=== PATIENT | male | born 1965 | race Caucasian/White ===

== ENCOUNTER 2020-08-28 05:10 | Emergency (ER) | payer MEDICARE, OTHER ==
[~2020-08-28 05:10] MED LIST: BENTYL10 MG PO; CIPRO500 MG PO; COMPAZINE10 MG PO; DEXAMETHASONE4 MG PO; DICYCLOMINE HCL20 MG PO; FOLIC ACID1 MG PO; HYDROCODON-ACE1 EAC6 PO; IBUPROFEN800 MG PO; LEVAQUIN 500MG500 MG PO; LISINOPRIL40 MG PO; MAG-OXIDE 400M400 MG PO; METFORMIN HCL750 MG PO; NOVOFINE AUTOC1 EACH SC; PEPCID AC20 MG PO; PHENERGAN25 M1 PO; PRILOSEC20 MG PO; PRINIVIL20 MG PO; PROTONIX 40MG T40 MG PO; REMERON15 MG PO; SIMVASTATIN40 MG PO; TRESIBA FL100 UNIT/1 SC; VITAMIN D32000 UNIT PO; ZESTRIL5 MG PO; ZOCOR40 MG PO
[2020-08-28] MEDS ORDERED: NORCO 5-325 TA1 EACH PO (11:40)
== END 2020-08-28 12:00 | disposition home or self-care (01) ==
LOC: FER 05:10
DX: S82.141A Displaced bicondylar fracture of right tibia, initial encounter for closed fracture (principal); H54.8 Legal blindness, as defined in USA; W19.XXXA Unspecified fall, initial encounter; Y92.009 Unspecified place in unspecified non-institutional (private) residence as the place of occurrence of the external cause
CPT/HCPCS: 73564; 73700; 96372; J1170; J1885

== ENCOUNTER 2020-10-17 07:29 | Inpatient (IN) | payer MEDICARE, OTHER ==
[~2020-10-17] VITALS: Ht 167.6 cm; Wt 68.0 kg
[~2020-10-17 07:29] MED LIST changes: +NORCO 5-325 TA1 EACH PO
[2020-10-17 08:27] LABS: BASOPHIL 0.5 % (0-2); EOSINOPHIL 0.3 % (0-5); HCT 41.4 % (42.0-52.0); HGB 13.2 g/dl (13.2-18.0); LYMPHOCYTE 6.6 % (15-48); MCH 29.7 pg (25.0-31.0); MCHC 31.9 g/dL (32.0-36.0); MCV 93.2 fL (78.0-100.0); MONOCYTE 7.5 % (0-12); MPV 8.9 fL (6.0-9.5); NEUTROPHIL 84.7 % (41-80); NRBC 0; PLT 361 K/uL (150-400); RBC 4.44 M/uL (4.70-6.00); RDW 14.8 % (11.5-14.0); WBC 15.2 K/uL (4.0-10.5)
[2020-10-17 08:53] LABS: LACTIC ACID 2.2 mmol/L (0.4-1.9)
[2020-10-17 08:54] LABS: ALBUMIN 2.5 g/dL (3.4-5.0); BILIRUBIN - TOTAL 0.6 mg/dL (0.2-1.0); BUN/CREAT RATIO (CALC) 18.8 RATIO; CREATININE 0.8 mg/dL (0.67-1.17); POTASSIUM 4.3 mmol/L (3.5-5.1); TOTAL PROTEIN 7.5 g/dL (6.4-8.2)
[2020-10-17 15:00] LABS: BILIRUBIN NEGATIVE (NEGATIVE); BLOOD NEGATIVE Ery/uL (NEGATIVE); CLARITY CLEAR (CLEAR); COLOR YELLOW (YELLOW); GLUCOSE (U) NORMAL (NORMAL); LEUKOCYTES NEGATIVE Leu/uL (NEGATIVE); NITRITE NEGATIVE (NEGATIVE); PROTEIN NEGATIVE (NEGATIVE); SPECIFIC GRAVITY <=1.005 (1.001-1.030); UROBILINOGEN 0.2 mg/dL (0.2-1.0); pH 7.5 (5.0-9.0)
--- NOTE | 2020-10-17 19:43 | NUR ---
PT HR 144 ON ARRIVAL TO BEDSIDE. OXYGEN SAT IN MID TO LOW 80'S. PT ON NONREBREATHER. KAYLEE HEWITT NOTIFIED. ABG AND EKG ORDERED AND OBTAINED. OXYGEN DEVICE CHANGED TO HFNC AT 40L 100%. O2 NOW READING 90%
--- NOTE | 2020-10-17 20:26 | NUR ---
RT CALLED TO ASSESS PATIENT DUE TO LOW SATURATIONS AT SHIFT CHANGE. PATIENT O2 SAT WAS 80% ON 10L OXYMZIER. PATIENT IS FREQUENTLY COUGHING AND SUCTIONING HIS MOUTH OUT HIMSELF WITH YAUNKER. GREEN THIN LIQUID CONTENTS IN SUCTION CONTAINER. PATIENT WAS TRIED ON 50% VM WITH LITTLE IMPROVEMENT THEN SWITCHED TO 100% NRB WITH SAT INCREASING TO 87%. ABG OBTAINED AND KAYLEE HEWITT NOTIFIED OF RT WORKUP. ABF SHOWED 7.347/33.0/52.8 PO2/18.0 WITH SAT 85% PATIENT WAS PLACED ON 40L, 100% HHFNC. PATIENT WAS MAINTAING AROUND 88-89%. ISB AND ACAPELLA DONE WITH PATIENT AND PATIENT HAS GOOD PRODUCTIVE COUGH. COARSE CRACKLES THROUGHOUT LUNG GEORGE. 100% NRB WAS NEEDED TO BE PLACED ON WITH HIGH FLOW DUE TO PATIENT DESAT TO 84%. KASH SANTANA NOTIFIED AND AT BEDSIDE CURRENTLY. VERBAL ORDERS FOR REPEAT ABG
--- NOTE | 2020-10-17 21:34 | NUR ---
ABG OBTAINED. PROGRESSIVE CARE NURSE NOTIFIED. KASH SANTANA SPOKE TO PATIENT REGUARDING INTUBATION. PATIENT WAS MOVED TO ICU 4 W/O INCIDENT ON TRANSPORT HHFNC AND NRB 100% HOOKED TO TANK. ALL INTUBATION SUPPLIES AND VENT WAS SET UP. PATIENT THEN REFUSING INTUBATION AFTER SPEAKING TO RN/PROGRESSIVE CARE NURSE AGAIN. CURRENT INTUBATION ON HOLD PATIENT CURRENTLY 87% SAT WITH HR 133 CONTINUE TO MONITOR AND FURTHER AWAIT ORDERS/INSTURCTION/CARE
--- NOTE | 2020-10-18 00:12 | NUR ---
PATIENT INTUBATED AROUND [address] WANG VIA GLIDESCOPE. #7 ET TUBE 24@LIP. PATIENT PLACED ON VENT. VT450, RATE 16, 100% +7.5 GOOD CO2 DETECTOR COLOR CHANGE, AUSCULTATION AND MOISTURE IN TUBING TO CONFIRM TUBE PLACEMENT, CXR ORDERED. PATIENT ET/ORAL SUCTIONED. SPUTUM OBTAINED AND SENT TO LAB. PATIENT WAS INCREASED TO VT500. CURRENTLY SAT 92%, HR 112, REPEAT ABG AFTER INTUBATION PER KASH SANTANA
--- NOTE | 2020-10-18 01:37 | NUR ---
PATIENT GIVEN ATOMADATE 10 L BY FOR INTUBATION. THEN GIVEN 2.5 ML OF SUCS FOR INTUBATION. INTUBATED WITH SIZE 7 TUBE, 24 AT LIP AT 2320. PATIENT TOLERATED WELL. VENT SETTINGS OF PEEP 7.5, TIDAL VOLUME OF 500 AND 16 BREATHS PER MINUTE
--- NOTE | 2020-10-18 01:48 | NUR ---
AT APPROXIMATELY 9 PM I SPOKE WITH PATIENT AD INFORMED HIM THAT WE WERE GOING TO PLACE A TUBE DOWN HIS THROAT TO HELP HIM BREATHE AND HE STATED "I DONT WANT IT". i SIAD IF WE DON'T F THIS YOU MAY , HE SAID "LET ME ". I SPOKE WITH HIS MOTHER AND SHE SAID TO INTUBATE HIM BUMarie WHEN I ASKED ABOUT HIS MENTAL STATE SHE SAID HE IS VERY SMART, SO i TOLD HER HE COULD MAKE DECISIONS FOR HIS SELF AND HE DID NOT WANT TO BE INTUBATED. THE PATIENT WAS ALERT AND ORIENTED. AT 10:30 AFTER SPEAKING WITH HIS SISTER HE SAID HE WAS OK WITH INTUATION AT THIS TIME. THE ER DOC WAS NOTIFIED AND RADHA WAS INTUBATED.
[2020-10-18 03:22] LABS: BASOPHIL 0.3 % (0-2); EOSINOPHIL 0.1 % (0-5); HCT 38.3 % (42.0-52.0); HGB 12.2 g/dl (13.2-18.0); LYMPHOCYTE 3.4 % (15-48); MCH 30.6 pg (25.0-31.0); MCHC 31.9 g/dL (32.0-36.0); MONOCYTE 3.6 % (0-12); MPV 9.4 fL (6.0-9.5); NRBC 0; PLT 293 K/uL (150-400); RBC 3.99 M/uL (4.70-6.00); RDW 15.1 % (11.5-14.0); WBC 9.2 K/uL (4.0-10.5)
[2020-10-18 03:24] LABS: NEUTROPHIL 91.7 % (41-80)
--- NOTE | 2020-10-18 03:30 | NUR ---
ATTEMPTED CENTRAL LINE BY DR. WANG, CENTRAL LINE WAS UNABLE TO BE PLACED AND RT SIDED PNEUMO OCCURED. PATIENT HAS RIGHT SIDE CHEST TUBE PLACED BY DR. WANG. CXR OBTAINED. VENT SETTINGS ADJUSTED, VT BACK TO 450 AND PEEP DECREASED TO 5 DUE TO BETTER OXYGENATION WITH VENTILATOR AND CHEST TUBE. ABG THIS AM TO BE OBTAINED BY RT.
[2020-10-18 03:38] LABS: BUN/CREAT RATIO (CALC) 17.5 RATIO; CREATININE 0.8 mg/dL (0.67-1.17); POTASSIUM 3.5 mmol/L (3.5-5.1)
[2020-10-18 14:47] LABS: PRO-BNP 3733 pg/mL (<125)
[2020-10-18 14:49] LABS: CREATININE 0.81 mg/dL (0.67-1.17); POTASSIUM 2.9 mmol/L (3.5-5.1)
--- NOTE | 2020-10-18 19:17 | NUR ---
[address] INSERT[address] BY DR. RIVAS. TIME OUT COMPLETED, NO DIFFICULTIES, XRAY OBTAINED
--- NOTE | 2020-10-19 01:03 | NUR ---
AROUND 0015, PT. WAS TURNED FROM BACK TO L AND BP DROPPED FROM MAPS OF 70'S TO MAPS OF 50'S (60/40). O2 SAT ALSO DROPPED FROM 98% TO 78%. PT. WAS SUCTIONED WITH LITTLE AMOUNT OF SECRETIONS. RN NOTICED THAT VENT FILTER IS COVERED IN GREEN BILE LOOKING SUBSTANCE, RT AND LUMITE INJECTOR WERE CALLED. RT. CHANGED THE FILTER AND BAGGED THE PT. TO ACHIEVE SATS IN 90'S. CHEST XRAY WAS PERFORMED, ED DOC CORCAS CAME UP AND EXAMINED PT. WITH GLIDESCOPE. PT. WAS TURNED BACK TO HIS RIGHT SIDE, IS ON THE VENT AT 100%, AND IS HOLDING WNL VS AT THIS TIME.
[2020-10-19 04:09] LABS: BASOPHIL 0.3 % (0-2); EOSINOPHIL 0 % (0-5); HGB 10.8 g/dl (13.2-18.0); LYMPHOCYTE 2.7 % (15-48); MCHC 31.8 g/dL (32.0-36.0); MCV 94.4 fL (78.0-100.0); MONOCYTE 4.3 % (0-12); MPV 9.6 fL (6.0-9.5); NRBC 0; PLT 261 K/uL (150-400); RDW 15.3 % (11.5-14.0)
[2020-10-19 04:11] LABS: WBC 16.9 K/uL (4.0-10.5)
[2020-10-19 04:29] LABS: ALBUMIN 1.6 g/dL (3.4-5.0); ALKALINE PHOSHATASE 75 U/L (46-116); ALT <6 U/L (16-63); AST 13 U/L (15-37); BILIRUBIN - TOTAL 0.4 mg/dL (0.2-1.0); BUN 18 mg/dL (7-18); BUN/CREAT RATIO (CALC) 21.2 RATIO; CHLORIDE 111 mmol/L (98-107); CO2 (BICARBONATE) 25 mmol/L (21-32); CREATININE 0.85 mg/dL (0.67-1.17); GLOBULIN (CALCULATION) 4.5 g/dL; GLUCOSE 164 mg/dL (74-106); MAGNESIUM 1.6 mg/dL (1.8-2.4); PHOSPHORUS 2.1 mg/dL (2.6-4.7); POTASSIUM 2.9 mmol/L (3.5-5.1); TOTAL PROTEIN 6.1 g/dL (6.4-8.2)
--- NOTE | 2020-10-19 19:12 | NUR ---
1615 CHEST TUBE WITH LARGE AIRLEAK. TUBE UNDRESSED AND FOUND TO BE PULLED PARTIALLY OUT OF CHEST. DR. RIVAS NOTIFIED, UNABLE TO ADVANCE TUBE. DR. MAGALLON NOTIFIED AND #18 TUBE PLACED CONFIRMED BY XRAY.
[2020-10-20 03:59] LABS: BASOPHIL 0.1 % (0-2); EOSINOPHIL 0 % (0-5); HCT 33.1 % (42.0-52.0); HGB 10.4 g/dl (13.2-18.0); MCH 29.8 pg (25.0-31.0); MCHC 31.4 g/dL (32.0-36.0); MCV 94.8 fL (78.0-100.0); MONOCYTE 6.4 % (0-12); MPV 10.2 fL (6.0-9.5); NRBC 0; PLT 257 K/uL (150-400); RBC 3.49 M/uL (4.70-6.00); RDW 15.5 % (11.5-14.0); WBC 11.2 K/uL (4.0-10.5)
[2020-10-20 04:01] LABS: NEUTROPHIL 90.1 % (41-80)
[2020-10-20 04:15] LABS: BUN/CREAT RATIO (CALC) 31.8 RATIO; CREATININE 0.88 mg/dL (0.67-1.17); POTASSIUM 3.9 mmol/L (3.5-5.1)
[2020-10-20 04:16] LABS: MAGNESIUM 2.3 mg/dL (1.8-2.4)
--- NOTE | 2020-10-20 09:30 | NUR ---
PT TO OR VIA OR NURSE AND ANESTHESIA AT 0800. BVM USED DURING TRANSPORT ALONG WITH TRANSPORT MONITOR. VSS AT TIME OF TRANSPORT. TRANSPORTED ON LEVOPHED, VERSED, AND FENTANYL. PT RETURNED AT 0915 WITH OR NURSE AND ANESTHESIA. VSS AT TIME OF RETURN.
[2020-10-21 05:20] LABS: BASOPHIL 0.2 % (0-2); EOSINOPHIL 0.1 % (0-5); HCT 35.2 % (42.0-52.0); HGB 10.7 g/dl (13.2-18.0); LYMPHOCYTE 3.4 % (15-48); MCH 29.6 pg (25.0-31.0); MCHC 30.4 g/dL (32.0-36.0); MCV 97.5 fL (78.0-100.0); MONOCYTE 5.8 % (0-12); MPV 10.1 fL (6.0-9.5); NEUTROPHIL 89.9 % (41-80); NRBC 0; PLT 234 K/uL (150-400); RBC 3.61 M/uL (4.70-6.00); RDW 15.9 % (11.5-14.0)
[2020-10-21 05:49] LABS: WBC 17.2 K/uL (4.0-10.5)
[2020-10-21 06:26] LABS: ALBUMIN 1.7 g/dL (3.4-5.0); BILIRUBIN - TOTAL 0.2 mg/dL (0.2-1.0); BUN/CREAT RATIO (CALC) 30.9 RATIO; CREATININE 0.97 mg/dL (0.67-1.17); GLOBULIN (CALCULATION) 4.3 g/dL; MAGNESIUM 1.9 mg/dL (1.8-2.4); POTASSIUM 4.6 mmol/L (3.5-5.1)
[2020-10-22 05:23] LABS: BUN 25 mg/dL (7-18); BUN/CREAT RATIO (CALC) 31.6 RATIO; CHLORIDE 120 mmol/L (98-107); CO2 (BICARBONATE) 32 mmol/L (21-32); CREATININE 0.79 mg/dL (0.67-1.17); GLUCOSE 97 mg/dL (74-106); POTASSIUM 4.5 mmol/L (3.5-5.1)
[2020-10-22 05:27] LABS: C-REACTIVE PROTEIN > 18.00 mg/dL (<=0.90)
[2020-10-22 05:50] LABS: BASOPHIL 0.2 % (0-2); EOSINOPHIL 0.5 % (0-5); HCT 32.7 % (42.0-52.0); HGB 9.9 g/dl (13.2-18.0); MCH 29.7 pg (25.0-31.0); MCHC 30.3 g/dL (32.0-36.0); MCV 98.2 fL (78.0-100.0); MONOCYTE 7.5 % (0-12); MPV 10.7 fL (6.0-9.5); NEUTROPHIL 83.1 % (41-80); NRBC 0; PLT 199 K/uL (150-400); RBC 3.33 M/uL (4.70-6.00); RDW 15.8 % (11.5-14.0)
[2020-10-22 05:53] LABS: WBC 8.3 K/uL (4.0-10.5)
--- NOTE | 2020-10-22 07:48 | NUR ---
HOLD AM RAMOS PER DR REIS FOR BS OF 88
[2020-10-23 04:41] LABS: BUN/CREAT RATIO (CALC) 30.4 RATIO; CREATININE 0.69 mg/dL (0.67-1.17); POTASSIUM 3.3 mmol/L (3.5-5.1)
[2020-10-23 04:49] LABS: BASOPHIL 0.2 % (0-2); EOSINOPHIL 2.2 % (0-5); HCT 31.5 % (42.0-52.0); HGB 9.6 g/dl (13.2-18.0); LYMPHOCYTE 4.1 % (15-48); MCH 29.6 pg (25.0-31.0); MCHC 30.5 g/dL (32.0-36.0); MCV 97.2 fL (78.0-100.0); MONOCYTE 4.8 % (0-12); MPV 11.3 fL (6.0-9.5); NRBC 0; PLT 188 K/uL (150-400); RBC 3.24 M/uL (4.70-6.00); RDW 15.4 % (11.5-14.0)
[2020-10-23 04:55] LABS: NEUTROPHIL 88.3 % (41-80); WBC 8.9 K/uL (4.0-10.5)
--- NOTE | 2020-10-24 02:56 | NUR ---
PATIENT TAKENT TO CT AROUND 0200. PATIENT BAGGED TO CT AND PLACED ON VENT DURING IMAGING. PATIENT ARRIVED BACK TO ROOM WITHOUT INCIDENT. EKG AND AM ABG AFTER PATIENT ARRIVED BACK TO ROOM.
[2020-10-24 03:02] LABS: CREATININE 0.68 mg/dL (0.67-1.17); POTASSIUM 3.9 mmol/L (3.5-5.1)
--- NOTE | 2020-10-24 07:56 | NUR ---
0740 DOBHOFF TUBE IN RIGHT NARE REMOVED PER MD ORDER.
--- NOTE | 2020-10-24 13:39 | NUR ---
1235 PATIENT HAD SMALL BM AND TURNED TO BE CLEANED. PATIENT DESATTED TO 72% ON 60% FiO2. PATIENT SUCTIONED, PLACED ON BACK AND 45 DEGREES ELEVATION, 02 SAT STILL 72%. LUNG SOUNDS PRESENT ON EACH SIDE. DR REIS AND RT NOTIFIED. FiO2 INCREASED TO 100%, SLOW TO RECOVER 1245 PATIENT 90%, FiO2 DEREASED TO 70% PER DR REIS. VSS AT THIS TIME.
--- NOTE | 2020-10-24 16:00 | NUR ---
10/24/20 1530 [facility] PLACED ORDER RECEIVED FOR MIDLINE INSERTION. PT ON VENTILATOR AT THIS TIME. PT PREPPED AND DRAPED IN STERILE FASHION. THE PT'S LEFT UPPER ARM BASILIC VEIN WAS VISUALIZED USING THE SITE RITE 6 ULTRA SOUND. A 21 GA NEEDLE WAS USED. GOOD BLOOD RETURN WAS NOTED. THE GUIDE WIRE THREADED EASILY. THE NEEDLE WAS REMOVED AND THE MIDLINE CATHETER WAS PLACED OVER THE WIRE. THE WIRE AND SHEATH WERE REMOVED. GOOD BLOOD RETURN WAS NOTED. A CONNECTOR WAS FLUSHED AND PLACED OVER THE END OF THE CATHETER. A STAT LOCK WAS PLACED ON THE CATHETER AND A STERILE BIOPATCH WAS ALSO PLACED ON THE INSERTION SITE. A STERILE TEGADERM WAS PLACED OVER THE MIDLINE CATHETER. PT TOLERATED WELL. PT HAS A 20GA 10 CM POWERGLIDE MIDLINE CATHETER. GOOD FOR 29 DAYS. THIS IS NOT A CENTRAL LINE. REPORT TO JERILYN CHRISTOPHER ICU
--- NOTE | 2020-10-24 23:20 | NUR ---
RT CALLED PATIENT WAS DESATTING AROUDN 2223. PATIENT O2 WAS 85% ON 70% +5 PEEP PATIENT INCREASED TO 100% WITH NO IMPROVEMENT, INCREASED PEEP TO +8 PATIENT IMPROVED TO 87% AND THEN BEGAN TO DESAT AGAIN. PATIENT WAS TAKEN OFF OF VENT AND BAGGED WITH AMBU BAG AND PEEP VALVE THAT WAS INCREASED TO +15. STAT CXR OBTAINED. PATIENT DID DEST TO 70s. TERRA CEE AND DR. YANG AT BEDSIDE. BLOOD PRESSURE DROPPED. NO PNEUMOTHORAX OR SHIFT PER DR. YANG ON CXR. ET TUBE 3CM ABOVE LUCY. PATIENT SLOWLY IMPROVED WITH BAGGING. NOTHING PRIOR SUCTIONED FROM ET TUBE. PATIENT PLACED BACK ON VENT WITH FIO2 100% AND +15. DR. YANG STATED PATIENT HAS WORSENING PNA AND LOOKED TO BE IN ARDS. PEEP HAS SINCE SLOWY BEEN BACK DOWN DUE TO IMPROVING OXYGENATION SAT AND IMPROVING BLOOD PRESSURE. CURRENT VENT SETTINGS RATE 16, VT450, FIO2 100%, +7.5
[2020-10-25 03:52] LABS: BASOPHIL 0.3 % (0-2); HCT 34.8 % (42.0-52.0); LYMPHOCYTE 1.4 % (15-48); MCH 29.9 pg (25.0-31.0); MCHC 31.6 g/dL (32.0-36.0); MCV 94.6 fL (78.0-100.0); MONOCYTE 2.5 % (0-12); MPV 11.2 fL (6.0-9.5); NRBC 0; PLT 213 K/uL (150-400); RBC 3.68 M/uL (4.70-6.00)
[2020-10-25 04:03] LABS: INR 1.43 (0.9-1.2); PROTHROMBIN TIME 16.7 SECONDS (11.8-13.4); PTT 50.1 SECONDS (24.4-34.7)
[2020-10-25 04:20] LABS: ALBUMIN 1.2 g/dL (3.4-5.0); BILIRUBIN - TOTAL 0.3 mg/dL (0.2-1.0); BUN/CREAT RATIO (CALC) 19.1 RATIO; CREATININE 0.68 mg/dL (0.67-1.17); GLOBULIN (CALCULATION) 4.6 g/dL; MAGNESIUM 1.6 mg/dL (1.8-2.4); POTASSIUM 3.8 mmol/L (3.5-5.1); TOTAL PROTEIN 5.8 g/dL (6.4-8.2)
[2020-10-26 03:57] LABS: BASOPHIL 0.3 % (0-2); EOSINOPHIL 0.5 % (0-5); HCT 31.2 % (42.0-52.0); HGB 9.3 g/dl (13.2-18.0); LYMPHOCYTE 1.2 % (15-48); MCH 29.7 pg (25.0-31.0); MCHC 29.8 g/dL (32.0-36.0); MONOCYTE 3.5 % (0-12); MPV 11.5 fL (6.0-9.5); NRBC 0; PLT 176 K/uL (150-400); RBC 3.13 M/uL (4.70-6.00); RDW 15.2 % (11.5-14.0); WBC 23.5 K/uL (4.0-10.5)
[2020-10-26 04:03] LABS: MCV 99.7 fL (78.0-100.0); NEUTROPHIL 92.8 % (41-80)
[2020-10-26 04:18] LABS: BUN/CREAT RATIO (CALC) 26.9 RATIO; CREATININE 0.78 mg/dL (0.67-1.17); PHOSPHORUS 3.8 mg/dL (2.6-4.7); POTASSIUM 3.5 mmol/L (3.5-5.1)
[2020-10-26 04:19] LABS: MAGNESIUM 2.6 mg/dL (1.8-2.4)
--- NOTE | 2020-10-26 17:10 | NUR ---
DR REIS AND DR RODRIGUEZ AT BEDSIDE, NOTIFIED OF LOW O2 IN THE UPPER 80S AND ELEVATED HR IN THE 120S, SOME VENT SETTINGS ADJUSTED PT MONITORED, AFTER SOME SLIGHT IMPROVEMENT IN OXYGEN SAT, IT STARTED TO DECLINE AGAIN, RT WAS AT BEDSIDE AND SUCTIONED COPIOUS AMOUNT OF FLUIDS, O2 REMAINED LOW AND MD NOTIFIED, VENT SETTINGS WERE MADE, OG WAS PLACED TO INTERMITTEN SUCTION WITH MD APPROVAL, CHEST TUBE DRESSING CHANGED WELL AFTER NOTICING AN INCREASE IN LEAK, MD AWARE AND SURGON AWARE OF NO IMPROVEMENT. PT'S O2 SATS IMPROVED. PT CONTINUED TO BE CLOSLEY MONITORED BY RN,,RT
--- NOTE | 2020-10-26 17:19 | NUR ---
BRONCOSCOPY PERFORMED BY MD, PT TOLERATED WELL, RN AND RT AT BEDSIDE
--- NOTE | 2020-10-26 20:52 | NUR ---
PMD PERFORMED BRONC AT BEDSIDE AT 1945. RN AND RT AT BEDSIDE ALSO. SMALL AMOUNT OF FIGUEROA THICK FLUID RETURNED.
[2020-10-27 04:46] LABS: BASOPHIL 0.2 % (0-2); EOSINOPHIL 0.4 % (0-5); HCT 29.4 % (42.0-52.0); LYMPHOCYTE 1.7 % (15-48); MCH 29.6 pg (25.0-31.0); MCHC 30.6 g/dL (32.0-36.0); MCV 96.7 fL (78.0-100.0); MONOCYTE 6.2 % (0-12); MPV 11.1 fL (6.0-9.5); NRBC 0; PLT 187 K/uL (150-400); RBC 3.04 M/uL (4.70-6.00); RDW 15.3 % (11.5-14.0); WBC 21.5 K/uL (4.0-10.5)
[2020-10-27 05:10] LABS: INR 1.46 (0.9-1.2)
[2020-10-27 05:11] LABS: ALBUMIN 0.9 g/dL (3.4-5.0); ALKALINE PHOSHATASE 142 U/L (46-116); ALT <6 U/L (16-63); AST 14 U/L (15-37); BILIRUBIN - TOTAL 0.3 mg/dL (0.2-1.0); BUN 23 mg/dL (7-18); BUN/CREAT RATIO (CALC) 26.7 RATIO; CHLORIDE 112 mmol/L (98-107); CO2 (BICARBONATE) 22 mmol/L (21-32); CREATININE 0.86 mg/dL (0.67-1.17); GLOBULIN (CALCULATION) 4.3 g/dL; GLUCOSE 62 mg/dL (74-106); POTASSIUM 3.4 mmol/L (3.5-5.1); PTT 52.3 SECONDS (24.4-34.7); TOTAL PROTEIN 5.2 g/dL (6.4-8.2); TRIGLYCERIDES 48 mg/dL (<150)
--- NOTE | 2020-10-28 15:23 | NUR ---
1430 CALLED MD RIVAS PT SAT 85%, HE INCREASED PEEP 2 TIMES TO NEW RATE OF 14 AND INCREASED FIO2 100%,PT STIL ONLY SATTING 85 TO 86% ALSO BP DROPPING AND INCREASED LEVOPHED TO 14MCG 52.5ML/HR LAST BP 107/55
[2020-10-28 16:21] LABS: BASOPHIL 0.3 % (0-2); EOSINOPHIL 0.5 % (0-5); HCT 28.4 % (42.0-52.0); HGB 8.8 g/dl (13.2-18.0); LYMPHOCYTE 1.8 % (15-48); MCH 29.7 pg (25.0-31.0); MCV 95.9 fL (78.0-100.0); MONOCYTE 5.7 % (0-12); MPV 11.6 fL (6.0-9.5); NEUTROPHIL 90.3 % (41-80); NRBC 0.2; PLT 201 K/uL (150-400); RBC 2.96 M/uL (4.70-6.00); RDW 15.5 % (11.5-14.0); WBC 18.5 K/uL (4.0-10.5)
[2020-10-28 16:47] LABS: ALBUMIN 0.9 g/dL (3.4-5.0); ALKALINE PHOSHATASE 146 U/L (46-116); ALT <6 U/L (16-63); AST 9 U/L (15-37); BILIRUBIN - TOTAL 0.5 mg/dL (0.2-1.0); BUN 29 mg/dL (7-18); BUN/CREAT RATIO (CALC) 30.2 RATIO; CHLORIDE 109 mmol/L (98-107); CO2 (BICARBONATE) 23 mmol/L (21-32); CREATININE 0.96 mg/dL (0.67-1.17); GLOBULIN (CALCULATION) 4.6 g/dL; GLUCOSE 242 mg/dL (74-106); POTASSIUM 3.4 mmol/L (3.5-5.1); TOTAL PROTEIN 5.5 g/dL (6.4-8.2)
--- NOTE | 2020-10-28 19:30 | NUR ---
MD RIVAS TALKED WITH FAMILY, THEY WISH TO START COMFORT CARE. 183 WE TURNED OFF ALL DRIPS EXCEPT THE TPN,AND VENT WILL REMAIN ON UNTIL HE PASSES. MOTHER AND SISTER LEFT AND WENT HOME
--- NOTE | 2020-10-28 21:40 | NUR ---
PT. PASSED WHILE ON VENT AT 2039. MANAGED SECURITY SALES CONSULTANT AND RN AT BEDSIDE. [facility] NOTIF[facility] RANDELL WAS CALLED AROUND 2119. THEY SAID THEY WANT TO F/U WITH [employer]NE[employer] DONATION. RANDELL WILL CONTACT FAMILY AROUND 2229 TO ASK FOR PERMISSION. I WAS TOLD TO NOT RELEASE THE BODY UNTIL THEY CALL ME BACK. I WILL PERFORM EYE PREP AND APPLY ICE TO AXILLARY AREA PER [facility] INSTRUCTION. TALKED TO PEGGY CASTILLO . ER,RN
--- NOTE | 2020-10-29 07:00 | NUR ---
0030 PEGGY CRUZ [facility] CALLED SAYING THAT THEY COULD NOT GET A HOLD OF THE MOTHER FOR PERMISSION TO TAKE THE CORNEAS. SO THE BODY MAY BE RELEASED TO THE HOME AT THIS TIME. ER, RN
== END 2020-10-28 20:40 | disposition expired | DRG 870 ==
LOC: FER 07:29 → FTCU 12:17 → FICU 12:17
PROVIDERS: Allergy & Immunology Allergy; Emergency Medicine; Student in an Organized Health Care Education/Training Program; ADMIT Internal Medicine
PROC: 0W9930Z Drainage of Right Pleural Cavity with Drainage Device, Percutaneous Approach (ICD-10-PCS; 2020-10-18)
PROC: 02HV33Z Insertion of Infusion Device into Superior Vena Cava, Percutaneous Approach (ICD-10-PCS; 2020-10-18)
PROC: B548ZZA Ultrasonography of Superior Vena Cava, Guidance (ICD-10-PCS; 2020-10-18)
PROC: 3E043XZ Introduction of Vasopressor into Central Vein, Percutaneous Approach (ICD-10-PCS; 2020-10-18)
PROC: 0W9930Z Drainage of Right Pleural Cavity with Drainage Device, Percutaneous Approach (ICD-10-PCS; 2020-10-19)
PROC: 5A1955Z Respiratory Ventilation, Greater than 96 Consecutive Hours (ICD-10-PCS; 2020-10-20)
PROC: 0DJ08ZZ Inspection of Upper Intestinal Tract, Via Natural or Artificial Opening Endoscopic (ICD-10-PCS; 2020-10-20)
PROC: 0BH17EZ Insertion of Endotracheal Airway into Trachea, Via Natural or Artificial Opening (ICD-10-PCS; 2020-10-20)
PROC: 0W9930Z Drainage of Right Pleural Cavity with Drainage Device, Percutaneous Approach (ICD-10-PCS; principal; 2020-10-20 08:00)
PROC: 05HC33Z Insertion of Infusion Device into Left Basilic Vein, Percutaneous Approach (ICD-10-PCS; 2020-10-24)
DX: A41.9 Sepsis, unspecified organism (principal); J95.811 Postprocedural pneumothorax; J86.0 Pyothorax with fistula; R65.21 Severe sepsis with septic shock; J18.9 Pneumonia, unspecified organism; J69.0 Pneumonitis due to inhalation of food and vomit; J96.01 Acute respiratory failure with hypoxia; K57.92 Diverticulitis of intestine, part unspecified, without perforation or abscess without bleeding; E87.1 Hypo-osmolality and hyponatremia; K56.7 Ileus, unspecified; J95.812 Postprocedural air leak; Z66 Do not resuscitate; Z51.5 Encounter for palliative care; E11.9 Type 2 diabetes mellitus without complications; Z20.822 Contact with and (suspected) exposure to COVID-19; I11.0 Hypertensive heart disease with heart failure; I50.9 Heart failure, unspecified; D50.9 Iron deficiency anemia, unspecified; H54.7 Unspecified visual loss; E55.9 Vitamin D deficiency, unspecified; Z85.01 Personal history of malignant neoplasm of esophagus; Z90.49 Acquired absence of other specified parts of digestive tract; Z98.890 Other specified postprocedural states; Z79.84 Long term (current) use of oral hypoglycemic drugs; Z79.899 Other long term (current) drug therapy; Y83.8 Other surgical procedures as the cause of abnormal reaction of the patient, or of later complication, without mention of misadventure at the time of the procedure
CPT/HCPCS: 36415; 36600; 70450; 71045; 71260; 71275; 74018; 76000; 80048; 80053; 80202; 81003; 82803; 82962; 83036; 83605; 83735; 83880; 84100; 84134; 84145; 84478; 84484; 85025; 85379; 85610; 85730; 86140; 87040; 87070; 87077; 87186; 87205; 87449; 93005; 94002; 94640; 94667; 94760; 94762; C1751; C9113; J0456; J0610; J0637; J0696; J1642; J1650; J1940; J1956; J2020; J2250; J2405; J2543; J2920; J3010; J3370; J3475; J3480; J7030; J7050; J7060; J7070; J7120; Q9967; U0002